=== PATIENT | female | born 1955 | race Caucasian/White ===

== ENCOUNTER → 2023-10-17 09:20 | Outpatient (REF) | payer MEDICARE, OTHER, SELFPAY | LOC: RAD 09:20 | PROVIDERS: ATTENDING PHYSICIAN Internal Medicine Rheumatology; FAMILY PHYSICIAN Family Medicine; REFERRING PHYSICIAN Internal Medicine Hematology & Oncology | DX: M15.9 Polyosteoarthritis, unspecified (principal); M20.001 Unspecified deformity of right finger(s); M20.62 Acquired deformities of toe(s), unspecified, left foot; M25.551 Pain in right hip | CPT/HCPCS: 73130; 73502; 73630 ==

== ENCOUNTER → 2024-10-15 10:21 | Outpatient (REF) | payer MEDICARE, OTHER, SELFPAY ==
[2024-10-17 20:59] LABS: Albumin 4.59 g/dL (3.75-5.01); Alpha 1 Globulin 0.26 g/dL (0.19-0.46); Alpha 2 Globulin 0.63 g/dL (0.48-1.05); Free Kappa Light Chains,Quant 17.48 mg/L (3.30-19.40); Free Lambda Light Chains,Quant 15.12 mg/L (5.71-26.30); IgA 176 mg/dL (68-408); IgG 1061 mg/dL (768-1632); IgM 96 mg/dL (35-263); Immunofixation Electrophoresis IFE Done; Kappa/Lambda Fr Light Ratio 1.16 (0.26-1.65); Total Protein-Electrophoresis 7.1 g/dL (6.3-8.2)
== END ==
LOC: RAD 10:21
PROVIDERS: ATTENDING PHYSICIAN Internal Medicine Hematology & Oncology; FAMILY PHYSICIAN Family Medicine
DX: D47.3 Essential (hemorrhagic) thrombocythemia (principal); R79.9 Abnormal finding of blood chemistry, unspecified; R94.4 Abnormal results of kidney function studies; G90.09 Other idiopathic peripheral autonomic neuropathy; R53.83 Other fatigue; D45 Polycythemia vera; D50.9 Iron deficiency anemia, unspecified
CPT/HCPCS: 36415; 71046; 82784; 83521; 84155; 84165; 86334